=== PATIENT | male | born 1940 | race Caucasian/White ===

== ENCOUNTER 2020-11-10 11:43 | Emergency (ER) | payer MEDICARE, SELFPAY ==
[2020-11-10 11:55] VITALS: BP 142/94; PULSE 77; RESP 18; TEMP 36.2; O2SAT 96
--- NOTE | 2020-11-10 13:29 | ED.URI ---
HPI - URI/Sore Throat General Chief Complaint: Upper Respiratory Infection Stated Complaint: sneezing/cough/headache/watery eyes Source: patient and RN notes reviewed Mode of arrival: ambulatory History of Present Illness HPI Narrative: This is a 80-year-old male that presented to urgent care with complaints of sneezing, ear and nasal congestion, watery eyes, unproductive cough that started on Sunday. Patient also notes that he has had diarrhea at least one time a day for 3 days patient has been taking [id number]-[id number] sinus medications with little relief. He does have a history of allergies the patient denies SOB, CP, palpitation, extremity numbness, lightheadedness, dizziness, constipation, diarrhea, chills, or fever. Patient notes that a couple days ago he stuck a Q-tip in his right ear due to congestion. MD elicited complaint: cough, rhinorrhea, nasal congestion and sinus pain Related Data Home Medications Medication Instructions Recorded Confirmed albuterol sulfate INHALATION 11/10/20 baclofen mg 11/10/20 budesonide-formoterol [Symbicort] INHALATION 11/10/20 diclofenac sodium PO 11/10/20 diltiazem HCl PO 11/10/20 fluticasone furoate [Arnuity INHALATION 11/10/20 Ellipta] fluticasone propionate INTRANASAL 11/10/20 hydralazine 11/10/20 hydrochlorothiazide 11/10/20 latanoprost drp 11/10/20 lorazepam 11/10/20 montelukast mg 11/10/20 pravastatin 11/10/20 pregabalin 11/10/20 Allergies Allergy/AdvReac Type Severity Reaction Status Date / Time morphine Allergy Unknown HALLUCINATI Unverified 08/29/14 11:55 ONS Review of Systems Review of Systems: A 14 organ system Review of Systems was performed and pertinent positives included in the HPI, otherwise remaining ROS is negative. [facility] Family History Family History (Updated 11/10/20 @ 13:30 by PEREZ Mireles) Other Family history non-contributory Exam Narrative: GENERAL: This is a well-nourished, well-developed patient, in no apparent distress. HEAD: normocephalic, atraumatic. Maxillary tenderness EYES: PERRL. Sclera clear/white. Vision is grossly intact. EARS: External ears normal, auditory canals with old blood erythematous with edema to the right ear, TMs normal without perforation. Hearing grossly intact. NOSE: External nose normal with no obvious nasal discharge, nares without redness, no rhinorrhea. THROAT: Mucous membranes moist, posterior pharynx clear. NECK: Neck supple, non-tender without lymphadenopathy, masses or thyromegaly. CARDIOVASCULAR: Regular rate and rhythm without murmurs, gallops, or rubs. RESPIRATORY: Clear to auscultation. Breath sounds equal bilaterally. No wheezes, rales, or rhonchi. GASTROINTESTINAL: Abdomen soft, non-tender, nondistended. Bowel sounds are active. No hepato-splenomegaly, or palpable masses. No guarding. SKIN: warm, intact with no suspicious lesions or rash, good texture and turgor. NEURO: awake, alert, and oriented to person, place and time. There were no obvious focal neurologic abnormalities. Steady gait EXTREMITIES: Normal range of motion. No edema. No calf tenderness. Negative Homans sign bilaterally. BACK: Nontender without deformity or crepitance. No flank tenderness. Course Vital Signs Vital signs: Vital Signs Temperature 97.2 F L 11/10/20 11:55 Pulse Rate 77 11/10/20 11:55 Respiratory Rate 18 11/10/20 11:55 Blood Pressure 142/94 H 11/10/20 11:55 Pulse Oximetry 96 11/10/20 11:55 Temperature 97.2 F L 11/10/20 11:55 Pulse Rate 77 11/10/20 11:55 Respiratory Rate 18 11/10/20 11:55 Blood Pressure 142/94 H 11/10/20 11:55 Pulse Oximetry 96 11/10/20 11:55 Discharge Plan Discharge Clinical Impression: Sinusitis Qualifiers: Sinusitis location: maxillary Chronicity: acute Recurrence: non-recurrent Qualified Code(s): J01.00 - Acute maxillary sinusitis, unspecified Otitis externa Qualifiers: Otitis externa type: unspecified type Chronicity: a
== END 2020-11-10 13:32 | disposition home or self-care (01) ==
PROVIDERS: Emergency Provider Nurse Practitioner; PCP Family Medicine
DX: J01.00 Acute maxillary sinusitis, unspecified (principal); H60.502 Unspecified acute noninfective otitis externa, left ear
CPT/HCPCS: 99213; G0463